=== PATIENT | female | born 1990 | race African-American/Black ===

== ENCOUNTER 2016-11-03 18:42 | Emergency (ER) | payer OTHER, BC ==
[~2016-11-03] VITALS: Ht 160 cm; Wt 50.0 kg
[2016-11-03] MEDS ORDERED: PREDNISONE 20MG TABLET PO STA (18:59)
[2016-11-03] MEDS ORDERED: IPRATROPIUM BROMIDE (0.02%) 0.5MG/2.5ML NEB HHN STA (18:59)
[2016-11-03] MEDS ORDERED: ALBUTEROL (0.083%) 2.5MG/3ML NEB HHN STA (18:59)
[2016-11-03] MEDS ORDERED: ACETAMINOPHEN 325MG TABLET PO ONE (19:00)
[2016-11-03 21:00] VITALS: BP 112/80
== END 2016-11-03 21:06 | disposition home or self-care (01) ==
LOC: ER 18:43
DX: J06.9 Acute upper respiratory infection, unspecified (principal); J45.909 Unspecified asthma, uncomplicated; F17.210 Nicotine dependence, cigarettes, uncomplicated
CPT/HCPCS: 94640; 99283; J7512; J7611

== ENCOUNTER 2016-11-05 08:53 | Emergency (ER) | payer OTHER, BC ==
[~2016-11-05] VITALS: Ht 167.6 cm; Wt 55.0 kg
[2016-11-05 08:55] VITALS: BP 118/68
[2016-11-05] MEDS ORDERED: ONDANSETRON 4MG ODT PO ONE (09:30)
[2016-11-05] MEDS ORDERED: ACETAMINOPHEN 500MG TABLET PO ONE (09:30)
== END 2016-11-05 10:28 | disposition home or self-care (01) ==
LOC: ER 09:05
DX: B34.9 Viral infection, unspecified (principal); J45.909 Unspecified asthma, uncomplicated
CPT/HCPCS: 71020; 99284; Q0162

== ENCOUNTER 2021-06-19 08:51 | Emergency (ER) | payer BC, MEDICAID, OTHER ==
[~2021-06-19] VITALS: Ht 165.1 cm; Wt 54.0 kg
[2021-06-19] MEDS ORDERED: ONDANSETRON 4MG ODT PO ONE (09:15)
[2021-06-19] MEDS ORDERED: HYDROCODONE/ACETAMINOPHEN 5/325MG TABLET PO ONE (09:15)
[2021-06-19] MEDS ORDERED: HYDR-4001 MT (11:09)
[2021-06-19] MEDS ORDERED: ONDA4TAB5 MT (11:09)
[2021-06-19 11:38] VITALS: BP 117/78
== END 2021-06-19 11:40 | disposition home or self-care (01) ==
LOC: ER 08:51
DX: K08.89 Other specified disorders of teeth and supporting structures (principal); J45.909 Unspecified asthma, uncomplicated; I49.9 Cardiac arrhythmia, unspecified
CPT/HCPCS: 93005; 99283; Q0162